=== PATIENT | male | born 1990 | race Caucasian/White ===

== ENCOUNTER 2017-09-13 09:27 | Inpatient (IN) | payer OTHER ==
[~2017-09-13] VITALS: Ht 188 cm; Wt 120.5 kg
[2017-09-13] MEDS ORDERED: ASPirin 81 mg TAB PO ONE (09:45)
[2017-09-13] MEDS ORDERED: NITROGLYCERIN 0.4 MG SL TAB SL ONE (09:45)
[2017-09-13] MEDS ORDERED: SODIUM CHLORIDE 0.9% 1,000 ML IV ONE ×2 (10:00→11:45)
[2017-09-13 10:12] LABS: Basophils # (auto) 0 uL; Basophils % (auto) 0.3 % (0.0-2.0); Eosinophils # (auto) 0 uL; Eosinophils % (auto) 0.2 % (0.0-7.0); Hematocrit 44.7 % (41.0-53.0); Hemoglobin 14.9 g/dL (13.5-17.5); Lymphocytes # (auto) 0.8 uL; Lymphocytes % (auto) 6.3 % (10.0-50.0); Mean Corpuscular Hemoglobin 29.4 pg (28.0-32.0); Mean Corpuscular Hgb Conc. 33.3 g/dL (32.0-36.0); Mean Corpuscular Volume 88.2 fL (80.0-100.0); Monocytes # (auto) 0.9 uL; Monocytes % (auto) 6.7 % (0.0-12.0); Neutrophils # (auto) 11.7 uL; Neutrophils % (auto) 86.5 % (37.0-80.0); Platelet Count (auto) 193 10^3/uL (140-450); Red Blood Cells 5.07 10^6/uL (4.5-5.90); Red Cell Distribution Width 13.2 % (11.8-14.3); White Blood Cell 13.5 10^3/uL (4.4-10.8)
[2017-09-13 10:36] LABS: Alanine Aminotransferase 89 U/L (16-61); Albumin 4.4 g/dL (3.4-5.0); Alkaline Phosphatase 84 U/L (45-117); Anion Gap 8 (5-15); Aspartate Aminotransferase 59 U/L (15-37); BUN/Creatinine Ratio 9.3; Bilirubin, Total 0.7 mg/dL (0.2-1.0); Blood Urea Nitrogen 14 mg/dL (7-18); Calcium 9.4 mg/dL (8.5-10.1); Carbon Dioxide 27 mmol/L (21-32); Chloride 101 mmol/L (98-107); GFR African American 72 mL/min; GFR Non-African American 59 mL/min; Glucose 128 mg/dL (74-106); Potassium 3.7 mmol/L (3.5-5.1); Sodium 136 mmol/L (136-145); Total Protein 8.1 g/dL (6.4-8.2)
[2017-09-13] MEDS ORDERED: ACETAMINOPHEN 325 MG TAB PO PRN ×2 (13:30→17:45)
[2017-09-13] MEDS ORDERED: MORPHINE SULFATE 4 MG/ML SYR/VIAL IV PRN ×2 (13:30)
[2017-09-13] MEDS ORDERED: LORazepam 0.5 MG TAB PO PRN (13:30)
[2017-09-13] MEDS ORDERED: ZOLPIDEM TARTRATE 5 MG TAB PO PRN (13:30)
[2017-09-13] MEDS ORDERED: DEXTROSE (50%) 50ML SYRG IV PRN (13:30)
[2017-09-13] MEDS ORDERED: ONDANSETRON HCL 4 MG/2 ML VIAL IV PRN (13:30)
[2017-09-13] MEDS ORDERED: NITROGLYCERIN 0.4 MG SL TAB SL PRN ×2 (13:30)
[2017-09-13] MEDS ORDERED: ALUM & MAG HYDROX-SIMETH LIQ(MAALOX) 30 ML PO ONE (13:30)
[2017-09-13] MEDS ORDERED: CLOPIDOGREL BISULFATE 75 MG TAB PO SCH (13:45)
[2017-09-13] MEDS ORDERED: CARVEDILOL 3.125 MG TAB PO SCH (13:45)
[2017-09-13] MEDS: SODIUM CHLORIDE 0.9% 1,000 ML IV SCH ×2 (16:19→20:27)
[2017-09-13] MEDS: InsuLIN REG 1unit/0.01ml Soln (100units/ml) SC SCH ×2 (17:51→22:00)
[2017-09-13] MEDS: ACCU-CHEK COMFORT CURVE STRIP VI SCH ×2 (17:51→22:00)
[2017-09-13] MEDS ORDERED: HYDROcodone-ACET 5/325MG TAB PO PRN (18:00)
[2017-09-13] MEDS: ACETAMINOPHEN 325 MG TAB PO PRN (18:04)
[2017-09-13] MEDS ORDERED: LORA-622 PO (18:38)
[2017-09-13] MEDS ORDERED: LISI-285 PO (18:38)
[2017-09-13] MEDS ORDERED: FLUT1SUS (18:38)
[2017-09-13] MEDS: cefTRIAXone 1GM/10ml IVPUSH 10 ML IV SCH (19:46)
[2017-09-13 22:00] VITALS: BP 97/71
[2017-09-13] MEDS ORDERED: ATORVASTATIN 20 MG TAB PO SCH (22:00)
[2017-09-13] MEDS: FLUTICASONE PROP NASAL SPR 0.05 % (50MCG) 16GM EACHNOSTRI SCH (23:22)
[2017-09-14 05:00] VITALS: BP 114/72
[2017-09-14 05:43] LABS: Basophils # (auto) 0 uL; Basophils % (auto) 0.4 % (0.0-2.0); Eosinophils # (auto) 0 uL; Eosinophils % (auto) 0.1 % (0.0-7.0); Hematocrit 37.2 % (41.0-53.0); Hemoglobin 12.8 g/dL (13.5-17.5); Lymphocytes # (auto) 1.2 uL; Lymphocytes % (auto) 16.9 % (10.0-50.0); Mean Corpuscular Hemoglobin 30.7 pg (28.0-32.0); Mean Corpuscular Hgb Conc. 34.5 g/dL (32.0-36.0); Monocytes # (auto) 0.8 uL; Monocytes % (auto) 11.1 % (0.0-12.0); Neutrophils # (auto) 5.3 uL; Neutrophils % (auto) 71.5 % (37.0-80.0); Nucleated Red Blood Cells % 0.1 %; Platelet Count (auto) 146 10^3/uL (140-450); Red Blood Cells 4.18 10^6/uL (4.5-5.90); Red Cell Distribution Width 13.4 % (11.8-14.3); White Blood Cell 7.4 10^3/uL (4.4-10.8)
[2017-09-14] MEDS: ACCU-CHEK COMFORT CURVE STRIP VI SCH ×3 (05:56→17:00)
[2017-09-14] MEDS: ACETAMINOPHEN 325 MG TAB PO PRN (05:57)
[2017-09-14 06:12] LABS: Albumin 3.5 g/dL (3.4-5.0); BUN/Creatinine Ratio 9.5; Bilirubin, Total 0.7 mg/dL (0.2-1.0); Calcium 8.3 mg/dL (8.5-10.1); Magnesium 1.9 mg/dL (1.6-2.6); Potassium 4.1 mmol/L (3.5-5.1); Total Protein 6.7 g/dL (6.4-8.2)
[2017-09-14 08:00] VITALS: BP 115/54
[2017-09-14] MEDS: InsuLIN REG 1unit/0.01ml Soln (100units/ml) SC SCH ×3 (08:01→17:00)
[2017-09-14 08:29] VITALS: BP 113/69
[2017-09-14] MEDS ORDERED: cefTRIAXone 1GM/10ml IVPUSH 10 ML IV SCH (09:00)
[2017-09-14] MEDS ORDERED: DOCUSATE SOD 100 MG CAP PO SCH (10:00)
[2017-09-14] MEDS ORDERED: LISINOPRIL 10 MG TAB PO SCH (10:00)
[2017-09-14] MEDS ORDERED: ASPirin 81 mg TAB PO SCH (10:00)
[2017-09-14] MEDS: FLUTICASONE PROP NASAL SPR 0.05 % (50MCG) 16GM EACHNOSTRI SCH (12:08)
[2017-09-14] MEDS: cefTRIAXone 1GM/10ml IVPUSH 10 ML IV SCH (12:08)
[2017-09-14 12:21] VITALS: BP 112/59
[2017-09-14] MEDS: SODIUM CHLORIDE 0.9% 1,000 ML IV SCH (15:48)
[2017-09-14 17:09] VITALS: BP 116/76
[2017-09-14 17:23] VITALS: BP 113/69
== END 2017-09-14 18:30 | disposition home or self-care (01) | DRG 206 ==
LOC: ER 09:27 → TELE 09:28 → TELE-WESTW 18:29
PROVIDERS: ADMIT Internal Medicine; ATTEND Internal Medicine Pulmonary Disease
DX: M94.0 Chondrocostal junction syndrome [Tietze] (principal); E11.21 Type 2 diabetes mellitus with diabetic nephropathy; E88.81 Metabolic syndrome and other insulin resistance; N17.9 Acute kidney failure, unspecified; N18.3 Chronic kidney disease, stage 3 (moderate); E11.22 Type 2 diabetes mellitus with diabetic chronic kidney disease; I12.9 Hypertensive chronic kidney disease with stage 1 through stage 4 chronic kidney disease, or unspecified chronic kidney disease; E66.9 Obesity, unspecified; J45.909 Unspecified asthma, uncomplicated; Z83.3 Family history of diabetes mellitus; Z68.34 Body mass index [BMI] 34.0-34.9, adult; E86.0 Dehydration
CPT/HCPCS: 36415; 71045; 80053; 80061; 82962; 83036; 83605; 83735; 84443; 84484; 85025; 87040; 87086; 93005; 93017; 93306; 96360; 96361